=== PATIENT | female | born 1955 | race Caucasian/White ===

== ENCOUNTER 2017-07-16 00:55 | Inpatient (IN) | payer OTHER ==
[~2017-07-16] VITALS: Ht 165.1 cm; Wt 78.1 kg
[2017-07-16] VITALS (21 sets, daily range): BP systolic 128–211; BP diastolic 69–98
[~2017-07-16 00:55] MED LIST: ASPIRIN81 M1 PO; CARVEDILOL6.25 MG PO; COREG6.25 MG PO; HYDROCODONE BIT1 T11 PO; LABETALOL HCL200 MG PO; LISINOPRIL-HYDR1 TA1 PO; NAPROXEN500 MG PO; PERCOCET 325 MG1 TA5 PO; QUINAPRIL40 MG PO; VICODIN ES 7501 TAB PO
[2017-07-16 01:41] LABS: BASO % 0.6 % (0.0-1.0); EOS # 0.2 10*3/uL (0.0-0.4); EOS % 2.8 % (1.0-4.0); HEMATOCRIT 40.5 % (37.0-47.0); HEMOGLOBIN 13.7 g/dl (12.0-16.0); LYMPH # 1.1 10*3/uL (1.3-4.4); LYMPH % 16.1 % (27.0-41.0); MEAN CELL VOLUME 89.2 fl (81.0-99.0); MEAN CORPUSCULAR HGB 30.2 pg (27.0-31.0); MEAN CORPUSCULAR HGB CONC 33.8 g/dl (33.0-37.0); MONO # 0.7 10*3/uL (0.1-1.0); MONO % 9.9 % (3.0-9.0); NEUT % 70.2 % (47.0-73.0); PLATELET COUNT AUTOMATED 259 10*3/uL (130-400); RED BLOOD COUNT 4.54 10*6/uL (4.10-5.10); RED CELL DISTRI WIDTH 12.5 % (0-14.5); WHITE BLOOD COUNT 7.1 10*3/uL (4.8-10.8)
[2017-07-16 01:53] LABS: ACT PARTIAL THROMBO TIME 23.5 SECONDS (20.8-31.5)
[2017-07-16 02:02] LABS: ALBUMIN 3.7 gm/dl (3.1-4.5); ALKALINE PHOSPHATASE 68 U/L (45-117); BUN 27 mg/dl (7-24); CHLORIDE 102 mmol/L (98-107); CREATININE 1.41 mg/dL (0.55-1.02); LIPASE 231 U/L (73-393); POTASSIUM 3.5 mmol/L (3.5-5.1); SGOT/AST 15 IU/L (3-35); SGPT/ALT 24 U/L (12-78); SODIUM 140 mmol/L (136-145); TOTAL PROTEIN 7.4 gm/dL (6.4-8.2)
[2017-07-16 02:08] LABS: TROPONIN I < 0.015 ng/ml (<0.045)
--- NOTE | 2017-07-16 04:00 | NUR ---
THIS RN CALLED FOR NURSE TO NURSE REPORT.NURSE TO RETURN CALL.
--- NOTE | 2017-07-16 04:25 | NUR ---
A 61, admitted to , under the services of MONTRELL Kendall DO with a diagnosis of SYNCOPE, LOW BLOOD PRESSURE. Chief complaint is "HAVING ELEVATED BLOOD PRESSURE READINGS FOR 2X DAYS WITH DIZZINESS AND LOSS OF CONSCIOUSNESS. Patient arrived via ambulance from ER. Monitor applied. Initial assessment completed. Vital signs taken and recorded. MONTRELL KENDALL DO notified of admission to the unit. Orders received. See assessment for past medical history, medications and allergies. Patient and/or family oriented to unit. [facility] visitation policy reviewed. Clothing/patient valuable form completed. DAILY DORANTES
--- NOTE | 2017-07-16 04:25 | NUR ---
Time: 424 A 61 year old F admitted to under services of MONTRELL KENDALL DO, Pt. arrived via bed from ER. Chief complaint: DAILY RODRIGUEZ
[2017-07-16] MEDS ORDERED: ZOLOFT25 MG PO (04:46)
[2017-07-16] MEDS ORDERED: NORVASC5 MG PO (04:47)
[2017-07-16 06:18] LABS: BASO % 0.6 % (0.0-1.0); EOS # 0.1 10*3/uL (0.0-0.4); EOS % 1.6 % (1.0-4.0); HEMATOCRIT 39.3 % (37.0-47.0); HEMOGLOBIN 13.2 g/dl (12.0-16.0); LYMPH % 15.2 % (27.0-41.0); MEAN CELL VOLUME 90.1 fl (81.0-99.0); MEAN CORPUSCULAR HGB 30.3 pg (27.0-31.0); MEAN CORPUSCULAR HGB CONC 33.6 g/dl (33.0-37.0); MEAN PLATELET VOLUME 9.3 fl (9.6-12.3); MONO # 0.7 10*3/uL (0.1-1.0); MONO % 10.4 % (3.0-9.0); NEUT # 4.6 10*3/uL (2.3-7.9); NEUT % 71.9 % (47.0-73.0); PLATELET COUNT AUTOMATED 266 10*3/uL (130-400); RED BLOOD COUNT 4.36 10*6/uL (4.10-5.10); RED CELL DISTRI WIDTH 12.4 % (0-14.5); WHITE BLOOD COUNT 6.3 10*3/uL (4.8-10.8)
[2017-07-16 06:32] LABS: ALBUMIN 3.4 gm/dl (3.1-4.5); BUN 24 mg/dl (7-24); CHLORIDE 105 mmol/L (98-107); CHOLESTEROL 184 mg/dL (<200); CREATININE 1.18 mg/dL (0.55-1.02); PHOSPHOROUS 3.6 mg/dL (2.5-4.9); POTASSIUM 3.8 mmol/L (3.5-5.1); SGOT/AST 17 IU/L (3-35); SGPT/ALT 21 U/L (12-78); SODIUM 140 mmol/L (136-145); TRIGLYCERIDES 103 mg/dl (<150); VLDL CHOLESTEROL 21 mg/dL (6-40)
[2017-07-16 06:33] LABS: ALKALINE PHOSPHATASE 60 U/L (45-117); HDL CHOLESTEROL 61 mg/dl (40-60); LDL CHOLESTEROL 102 mg/dL (9-159); TOTAL PROTEIN 6.7 gm/dL (6.4-8.2)
[2017-07-16 06:36] LABS: TROPONIN I < 0.015 ng/ml (<0.045)
[2017-07-16 06:39] LABS: FREE T4 0.94 ng/dl (0.76-1.46)
[2017-07-16 06:56] LABS: ACT PARTIAL THROMBO TIME 24.6 SECONDS (20.8-31.5)
[2017-07-16 07:01] LABS: VITAMIN D, 25-HYDROXY 29.4 ng/mL (30-100)
--- NOTE | 2017-07-16 08:05 | NUR ---
PT RESTING IN BED. RESP-EASY AND REGULAR. IVF INFUSING WITH NO PROBLEM. C/O HEADACHE, RATES PAIN 6 ON PAIN SCALE. MEDICATED WITH TYLENOL TWO TAB PO PER PRN ORDER, SEE EMAR. CALL LIGHT IN REACH. SEE SHIFT ASSESSMENT.
--- NOTE | 2017-07-16 09:00 | NUR ---
RESTING IN BED WITH EYES CLOSED. MEDICATION SEEMS TO BE EFFECTIVE. CALL LIGHT IN [facility].
--- NOTE | 2017-07-16 11:39 | NUR ---
CALLED DR. HOWARD ANSWERING SERVICE REGARDING CONSULT. THEY WILL BEEP HIM.
--- NOTE | 2017-07-16 12:00 | NUR ---
PT SLEEPING IN BED ON RIGHT SIDE. NO SIGNS OF ACUTE DISTRESS NOTED. RESP-EASY AND REGULAR. IVF INFUSING WITH NO PROBLEM. CALL LIGHT IN [facility].
[2017-07-16 12:32] LABS: BILIRUBIN NEGATIVE (NEGATIVE); BLOOD NEGATIVE (NEGATIVE); CLARITY CLEAR (CLEAR); COLOR YELLOW (YELLOW); GLUCOSE NEGATIVE (NEGATIVE); KETONE NEGATIVE (NEGATIVE); LEUKO ESTERASE NEGATIVE (NEGATIVE); NITRITE NEGATIVE (NEGATIVE); UROBILINOGEN 0.2 E.U./dl (0.2-1.0)
--- NOTE | 2017-07-16 14:00 | NUR ---
PT RESTING IN BED. RESP-EASY AND REGULAR. IVF INFUSING WITH NO PROBLEM. NO C/O AT THIS TIME. CALL LIGHT IN REACH.
--- NOTE | 2017-07-16 16:00 | NUR ---
PT RESTING IN BED. RESP-EASY AND REGULAR. IVF INFUSING WITH NO PROBLEM. NO C/O AT THIS TIME. CALL LIGHT IN REACH. SEE SHIFT ASSESSMENT.
--- NOTE | 2017-07-16 18:00 | NUR ---
RESTING IN BED. RESP-EASY AND REGULAR. IVF INFUSING WITH NO PROBLEM. NO C/O AT THIS TIME. CALL LIGHT IN REACH.
--- NOTE | 2017-07-16 19:42 | NUR ---
CALLED REGARDING PTs HIGH BLOOD PRESSURE. NEW ORDERS RECEIVED. SEE SEP.
--- NOTE | 2017-07-16 19:48 | NUR ---
PT IN BED, LAYING DOWN. ELEVATED BLOOD PRESSURE AT THIS TIME. PT VOICES CONCERNS OF STIFF NECK AND HEADACHE. LUNGS DIMINISHED AND CLEAR. NO EDEMA NOTED. FLUIDS GOING, PT VOICES NO CONCERNS OF IV SITE. WILL CONTINUE TO MONITOR.
--- NOTE | 2017-07-16 21:24 | NUR ---
CALLED FOR UPDATE ON PTs STATUS. NO NEW ORDERS RECEIVED. WILL CONTINUE TO MONITOR PT.
[2017-07-17] VITALS (8 sets, daily range): BP systolic 134–180; BP diastolic 78–96
--- NOTE | 2017-07-17 02:54 | NUR ---
24HR CHART CHECK COMPLETED.
--- NOTE | 2017-07-17 03:09 | NUR ---
PT IN BED, LIGHT OFF, EYES CLOSED. PT RESTING COMFORTABLY. RESPIRATIONS EASY, UNLABORED. VITAL SIGNS STABLE. PT IN NO APPARENT DISTRESS AT THIS TIME.
[2017-07-17 06:14] LABS: BUN 17 mg/dl (7-24); CHLORIDE 107 mmol/L (98-107); CREATININE 1.08 mg/dL (0.55-1.02); SODIUM 141 mmol/L (136-145)
[2017-07-17 06:39] LABS: BASO % 0.7 % (0.0-1.0); EOS # 0.2 10*3/uL (0.0-0.4); HEMOGLOBIN 13.7 g/dl (12.0-16.0); LYMPH # 1.2 10*3/uL (1.3-4.4); LYMPH % 19.3 % (27.0-41.0); MEAN CELL VOLUME 90.5 fl (81.0-99.0); MEAN CORPUSCULAR HGB 30.2 pg (27.0-31.0); MEAN CORPUSCULAR HGB CONC 33.4 g/dl (33.0-37.0); MEAN PLATELET VOLUME 9.5 fl (9.6-12.3); MONO # 0.6 10*3/uL (0.1-1.0); MONO % 10.2 % (3.0-9.0); NEUT % 66.5 % (47.0-73.0); PLATELET COUNT AUTOMATED 271 10*3/uL (130-400); RED BLOOD COUNT 4.53 10*6/uL (4.10-5.10); RED CELL DISTRI WIDTH 12.5 % (0-14.5)
--- NOTE | 2017-07-17 07:02 | NUR ---
PT IN BED, LIGHTS OFF, RESIRATIONS EASY, UNLABORED. CALL LIGHT IN REACH. PT IN NO APPARENT DISTRESS AT THIS TIME.
--- NOTE | 2017-07-17 08:00 | NUR ---
PT RESTING IN BED. RESP-EASY AND REGULAR. NO C/O AT THIS TIME. ORTHOSTATICS DONE AND WAS NEGATIVE PT ASYMPTOMATIC. CALL LIGHT IN REACH. SEE SHIFT ASSESSMENT.
--- NOTE | 2017-07-17 08:30 | NUR ---
Web Content Coordinator in to talk to patient. Patient states lives at home with her and son. There are 2 steps in the home. Physician: Dr. Mcnair Pharmacy: [facility] services: none Patient's level of ADLs: INDEPENDENT Patient has working utilities: yes DME: none Follow-up physician's appointment after d/c: will be made by hospitalist nurse director upon discharge Does patient want to access PORTAL?: no Discharge plan discussed with patient. She lives at home with her and son. She is independent in her ADLs and ambulation. Denies any home needs at this time. When medically stable she will be discharged to home. SHIRIN HINOJOSA
--- NOTE | 2017-07-17 10:00 | NUR ---
TOLERATED ROUTINE MED WITH NO PROBLEM. NO C/O AT THIS TIME. CALL LIGHT IN REACH.
--- NOTE | 2017-07-17 14:10 | NUR ---
CALLED DR. ARIAS MADE AWARE OF BP 180/92. MADE AWARE DR. BARAJAS INCREASED NORVASC SHE TAKES IN EVENING AND ADDED HER HCTZ. HE WILL ADD ONE TIME DOSE NORVASC.
[2017-07-17] MEDS ORDERED: HYDROCHLOROTH12.5 M2 PO (14:18)
--- NOTE | 2017-07-17 14:35 | NUR ---
PT RESTING IN BED. MEDICATED WITH NORVASC ONE TIME ORDER, SEE EMAR. CALL LIGHT IN [facility].
--- NOTE | 2017-07-17 14:50 | NUR ---
DR. BARAJAS ON THE FLOOR GOING TO ADD LISINOPRIL ONE TIME. WAITING FOR MED.
--- NOTE | 2017-07-17 16:08 | NUR ---
PT MEDICATED WITH COZAAR PO PER ORDER, SEE EMAR. CALL LIGH TIN REACH. NO C/O AT THIS TIME. CALL LIGHT IN REACH. SEE SHIFT ASSESSMENT.
--- NOTE | 2017-07-17 18:30 | NUR ---
PT RESTING IN BED WITH VISITOR AT HER SIDE. CALL LIGHT IN REACH.
--- NOTE | 2017-07-17 19:28 | NUR ---
PHYSICAL THERAPY PATIENT SEEN TODAY ON LEVEL 4 FOR SCREEN/EVAL. PATIENT IS INDEPENDENT WITH ALL FUNCTIONAL MOBILITY THROUGHOUT THE ROOM WITH NO AD AND NO PT SERVICES ARE INDICATED AT THIS TIME. SHE STATES SHE WAL[place] AND HAS NO LOB OR ISSUES REQUIRING PT SERVICES AT THIS TIME. THANK YOU FOR REFERRAL MARY PRINGLE
--- NOTE | 2017-07-17 20:06 | NUR ---
PT IN BED, LIGHTS ON, WATCHING TV. CALL LIGHT WITHIN REACH. PT IS PLEASANT AND COOPERATIVE AT THIS TIME. VOICES COMPLAINTS OF A HEADACHE AND REQUESTING TYLENOL. NO OTHER COMPLAINTS AT THIS TIME. VITAL SIGNS STABLE. SEE SHIFT ASSESSMENT.
--- NOTE | 2017-07-17 20:48 | NUR ---
PT REQUESTED MEDICATION FOR HEADACHE. PAIN RATED AT 5 OUT OF 10 BUT STATES "I CAN FEEL THAT IT'S GOING TO GET WORSE." HEADACHE LOCATRED IN THE FOREHEAD AREA AND DULL, ACHING. PRN TYLENOL GIVEN. WILL MONITOR FOR EFFECTIVENSS.
--- NOTE | 2017-07-17 21:36 | NUR ---
PER PT, TYLENOL WAS EFFECTIVE FOR HEADACHE PAIN. PAIN RATED AT 2 OUT OF 10. WILL CONTINUE TO MONITOR. CALL LIGHT WITHIN REACH PT VOICES NO OTHER CONCERNS OR COMPLAINTS AT THIS TIME.
[2017-07-18] VITALS: BP 127/76
[2017-07-18 04:00] VITALS: BP 124/66
--- NOTE | 2017-07-18 04:25 | NUR ---
24HR CHART CHECK COMPLETED.
[2017-07-18 07:50] VITALS: BP 138/90
--- NOTE | 2017-07-18 07:59 | NUR ---
PT WAS AWAKE AND ORIENTED X3. SHE WAS LAYING IN BED WATCHING TV, DENIES ANY PAIN OR SOB. PT IS ORDERING BREAKFAST AND HAS NO COMPLAINTS AT THIS TIME. BP WAS 138/90 M [facility]
--- NOTE | 2017-07-18 08:00 | NUR ---
RESTING IN BED. RESP-EASY AND REGULAR. NO C/O A THTIS TIME. CALL LIGHT IN REACH.
[2017-07-18 08:13] LABS: BASO # 0.1 10*3/uL (0.0-0.1); BASO % 0.7 % (0.0-1.0); EOS # 0.2 10*3/uL (0.0-0.4); EOS % 2.4 % (1.0-4.0); HEMATOCRIT 46.4 % (37.0-47.0); HEMOGLOBIN 15.7 g/dl (12.0-16.0); LYMPH # 1.3 10*3/uL (1.3-4.4); LYMPH % 18.1 % (27.0-41.0); MEAN CELL VOLUME 88.5 fl (81.0-99.0); MEAN CORPUSCULAR HGB CONC 33.8 g/dl (33.0-37.0); MEAN PLATELET VOLUME 9.6 fl (9.6-12.3); MONO # 0.7 10*3/uL (0.1-1.0); MONO % 9.3 % (3.0-9.0); NEUT # 4.8 10*3/uL (2.3-7.9); NEUT % 68.9 % (47.0-73.0); PLATELET COUNT AUTOMATED 319 10*3/uL (130-400); RED BLOOD COUNT 5.24 10*6/uL (4.10-5.10); RED CELL DISTRI WIDTH 12.7 % (0-14.5)
--- NOTE | 2017-07-18 08:30 | NUR ---
School Curriculum Developer in to see patient. No new needs or request at this time. When medically stable she will be discharged to home.
[2017-07-18 08:36] LABS: ALBUMIN 4.1 gm/dl (3.1-4.5); ALKALINE PHOSPHATASE 80 U/L (45-117); BUN 24 mg/dl (7-24); CHLORIDE 104 mmol/L (98-107); CREATININE 1.09 mg/dL (0.55-1.02); POTASSIUM 3.8 mmol/L (3.5-5.1); SGOT/AST 16 IU/L (3-35); SGPT/ALT 24 U/L (12-78); SODIUM 138 mmol/L (136-145); TOTAL PROTEIN 8.3 gm/dL (6.4-8.2)
--- NOTE | 2017-07-18 08:38 | NUR ---
SPOKE WITH DR. ARIAS MADE AWARE PT BP THIS AM WITH ORTHOSTATICS.
[2017-07-18] MEDS ORDERED: COZAAR25 M1 PO (09:36)
--- NOTE | 2017-07-18 10:02 | NUR ---
Discharge instructions reviewed with patient/family. Patient receptive and verbalizes understanding. Follow-up care arranged. Written instructions given to patient/family. HEPLOCK REMOVED 2X2 APPLIED. MONITOR REMOVED. COTY AYOUB
--- NOTE | 2017-07-18 10:05 | NUR ---
IV SITE DISCONTINUED. SITE ASYMP WITH CATH INTACT. PT DISCHARGE INSTRUCTIONS GIVEN. PT VERBALIZED UNDERSTANDING. SHES WAITING FOR HER . YAZ VIVAS [id number]
--- NOTE | 2017-07-18 10:30 | NUR ---
PT ESCORTED OFF THE FLOOR FOR DISCHARGE.
== END 2017-07-18 10:30 | disposition home or self-care (01) | DRG 312 ==
LOC: ED 00:55 → EDHOLD 03:47 → 4E 03:47
PROVIDERS: Emergency Medicine; Emergency Medicine Emergency Medical Services; Family Medicine; Hospitalist; ADMIT Internal Medicine
DX: R55 Syncope and collapse (principal); N17.0 Acute kidney failure with tubular necrosis; E86.0 Dehydration; I16.0 Hypertensive urgency; I10 Essential (primary) hypertension; E55.9 Vitamin D deficiency, unspecified; R73.9 Hyperglycemia, unspecified; Z79.899 Other long term (current) drug therapy; Z80.3 Family history of malignant neoplasm of breast; Z80.0 Family history of malignant neoplasm of digestive organs; Z82.0 Family history of epilepsy and other diseases of the nervous system

== ENCOUNTER → 2018-03-29 | Outpatient (CLI) | payer OTHER ==
[~2018-03-29] MED LIST changes: +COZAAR25 M1 PO; +HYDROCHLOROTH12.5 M2 PO; +NORCO 5-325 TA1 EACH PO; +NORVASC5 MG PO; +ZOLOFT25 MG PO
[2018-03-30 16:08] LABS: A/G RATIO 1.3 (0.7-1.7); ALBUMIN 4.1 g/dL (2.9-4.4); ALPHA-1-GLOBULIN 0.2 g/dL (0.0-0.4); ALPHA-2-GLOBULIN 0.8 g/dL (0.4-1.0); BETA GLOBULIN 1.1 g/dL (0.7-1.3); FREE KAPPA LIGHT CHAINS 27.1 mg/L (3.3-19.4); FREE LAMBDA LIGHT CHAINS 23.3 mg/L (5.7-26.3); GAMMA GLOBULIN 1.2 g/dL (0.4-1.8); GLOBULIN, TOTAL 3.3 g/dL (2.2-3.9); IMMUNOGLOBULIN G, QNT 1107 mg/dL (700-1600); IMMUNOGLOBULIN M, QNT 155 mg/dL (26-217); KAPPA/LAMBDA RATIO 1.16 (0.26-1.65); M-SPIKE Not Observed g/dL (Not Observed); TOTAL PROTEIN, SERUM 7.4 g/dL (6.0-8.5)
== END | disposition home or self-care (01) ==
LOC: LAB 15:44
PROVIDERS: Family Medicine
DX: M89.9 Disorder of bone, unspecified (principal)

== ENCOUNTER 2018-05-23 13:29 | Emergency (ER) | payer OTHER ==
[~2018-05-23] VITALS: Ht 165.1 cm; Wt 73.5 kg
== END 2018-05-23 14:11 | disposition home or self-care (01) ==
LOC: ED 13:29
DX: S61.211A Laceration without foreign body of left index finger without damage to nail, initial encounter (principal); Z23 Encounter for immunization; Z79.899 Other long term (current) drug therapy; W26.0XXA Contact with knife, initial encounter; Y93.89 Activity, other specified; Y92.89 Other specified places as the place of occurrence of the external cause; Y99.8 Other external cause status

== ENCOUNTER → 2019-07-30 | Outpatient (CLI) | payer MEDICARE | END | disposition home or self-care (01) | LOC: RAD 13:34 | DX: M25.541 Pain in joints of right hand (principal) ==

== ENCOUNTER → 2019-08-08 | Outpatient (CLI) | payer MEDICARE | END | disposition home or self-care (01) | LOC: RAD 16:06 | DX: M25.511 Pain in right shoulder (principal) ==

== ENCOUNTER 2019-08-24 18:55 | Inpatient (IN) | payer MEDICARE ==
[~2019-08-24] VITALS: Ht 165.1 cm; Wt 70.6 kg
[2019-08-24 19:18] VITALS: BP 190/98
[2019-08-24 19:27] VITALS: BP 210/104
[2019-08-24 19:56] LABS: BASO % 0.4 % (0.0-1.0); EOS # 0.2 10*3/uL (0.0-0.4); EOS % 2.2 % (1.0-4.0); HEMATOCRIT 43.4 % (37.0-47.0); HEMOGLOBIN 14.5 g/dl (12.0-16.0); LYMPH # 0.9 10*3/uL (1.3-4.4); LYMPH % 12.8 % (27.0-41.0); MEAN CELL VOLUME 90.4 fl (81.0-99.0); MEAN CORPUSCULAR HGB 30.2 pg (27.0-31.0); MEAN CORPUSCULAR HGB CONC 33.4 g/dl (33.0-37.0); MEAN PLATELET VOLUME 9.1 fl (9.6-12.3); MONO # 0.5 10*3/uL (0.1-1.0); MONO % 6.7 % (3.0-9.0); NEUT # 5.5 10*3/uL (2.3-7.9); NEUT % 77.6 % (47.0-73.0); PLATELET COUNT AUTOMATED 273 10*3/uL (130-400); RED CELL DISTRI WIDTH 12.4 % (0-14.5); WHITE BLOOD COUNT 7.1 10*3/uL (4.8-10.8)
[2019-08-24 19:59] LABS: COLOR YELLOW (YELLOW)
[2019-08-24 20:00] LABS: BILIRUBIN NEGATIVE (NEGATIVE); BLOOD NEGATIVE (NEGATIVE); CLARITY CLEAR (CLEAR); GLUCOSE NEGATIVE (NEGATIVE); KETONE NEGATIVE (NEGATIVE); LEUKO ESTERASE NEGATIVE (NEGATIVE); NITRITE NEGATIVE (NEGATIVE); UROBILINOGEN 0.2 E.U./dl (0.2-1.0)
[2019-08-24 20:05] LABS: INTERNATIONAL NORM RATIO 0.9 (2.0-3.5)
[2019-08-24 20:08] LABS: ALBUMIN 3.6 gm/dl (3.1-4.5); ALKALINE PHOSPHATASE 68 U/L (45-117); BUN 17 mg/dl (7-24); CHLORIDE 106 mmol/L (98-107); CREATININE 1.08 mg/dL (0.55-1.02); POTASSIUM 3.6 mmol/L (3.5-5.1); SGOT/AST 13 IU/L (3-35); SGPT/ALT 23 U/L (12-78); SODIUM 141 mmol/L (136-145); TOTAL PROTEIN 7.4 gm/dL (6.4-8.2)
[2019-08-24 20:12] LABS: TROPONIN I < 0.015 ng/ml (<0.045)
[2019-08-24 20:20] LABS: BACTERIA TRACE; EPITHELIAL CELLS 0-2; RBC 0-2 rbc/hpf (0-2); WBC 0-2 wbc/hpf (0-5)
[2019-08-24 20:27] VITALS: BP 174/85
[2019-08-24 20:52] VITALS: BP 161/80
[2019-08-24 21:56] VITALS: BP 173/95
[2019-08-24 22:04] VITALS: BP 190/90
--- NOTE | 2019-08-24 22:04 | NUR ---
A 64 YEAR OLD FEMALE PATIENT, admitted to 4E, under the services of ERICKA Bhakta DO with a diagnosis of HYPERTENSIVE EMERGENCY Chief complaint is HIGH BLOOD PRESSURE READINGS AT HOME, HEADACHE Patient arrived via CART WITH RN from ER. Monitor applied. Initial assessment completed. Vital signs taken and recorded. ERICKA BHAKTA DO notified of admission to the unit. Orders received. See assessment for past medical history, medications and allergies. Patient and/or family oriented to unit. [address] visitation policy reviewed. Clothing/patient valuable form completed. JARVIS LOGAN
[2019-08-25] VITALS: BP 148/90
[2019-08-25] MEDS ORDERED: BUSPAR5 MG PO (00:34)
[2019-08-25] MEDS ORDERED: IBUPROFEN600 MG PO (00:34)
--- NOTE | 2019-08-25 02:15 | NUR ---
PATIENT RESTING WITH EYES CLOSED, APPEARS TO BE RESTING EASIER SINCE EARLIER MEDICATION
[2019-08-25 07:28] LABS: BASO % 0.3 % (0.0-1.0); EOS % 0.4 % (1.0-4.0); HEMATOCRIT 43.7 % (37.0-47.0); HEMOGLOBIN 14.8 g/dl (12.0-16.0); LYMPH # 0.8 10*3/uL (1.3-4.4); MEAN CELL VOLUME 90.3 fl (81.0-99.0); MEAN CORPUSCULAR HGB 30.6 pg (27.0-31.0); MEAN CORPUSCULAR HGB CONC 33.9 g/dl (33.0-37.0); MEAN PLATELET VOLUME 9.4 fl (9.6-12.3); MONO # 0.5 10*3/uL (0.1-1.0); MONO % 5.1 % (3.0-9.0); NEUT # 8.8 10*3/uL (2.3-7.9); NEUT % 85.9 % (47.0-73.0); PLATELET COUNT AUTOMATED 291 10*3/uL (130-400); RED BLOOD COUNT 4.84 10*6/uL (4.10-5.10); RED CELL DISTRI WIDTH 12.5 % (0-14.5); WHITE BLOOD COUNT 10.3 10*3/uL (4.8-10.8)
[2019-08-25 07:52] LABS: ALBUMIN 3.7 gm/dl (3.1-4.5); ALKALINE PHOSPHATASE 70 U/L (45-117); BUN 17 mg/dl (7-24); CHLORIDE 105 mmol/L (98-107); CREATININE 0.97 mg/dL (0.55-1.02); PHOSPHOROUS 3.5 mg/dL (2.5-4.9); POTASSIUM 3.9 mmol/L (3.5-5.1); SGOT/AST 13 IU/L (3-35); SGPT/ALT 23 U/L (12-78); SODIUM 140 mmol/L (136-145); TOTAL PROTEIN 7.5 gm/dL (6.4-8.2)
[2019-08-25 07:58] LABS: VITAMIN D, 25-HYDROXY 24.1 ng/mL (30-100)
[2019-08-25 08:00] VITALS: BP 176/84
--- NOTE | 2019-08-25 08:30 | NUR ---
Die Set Up Worker in to talk to patient. Patient states lives at home with her . There are 2 steps in the home. Physician: Omero Henderson Pharmacy: [facility] Home health services: none Patient's level of ADLs: INDEPENDENT Patient has working utilities: yes DME: none Follow-up physician's appointment after d/c: will be made by the hospitalist nurse director upon discharge Does patient want to access PORTAL?: no Discharge plan discussed with patient. She lives at home with her . She is independent in her ADLs and ambulation. Discussed home health care services and she denies any home needs at this time. When medically stable she will be discharged to home. Her will provide transportation on discharge. SHIRIN HINOJOSA
--- NOTE | 2019-08-25 08:41 | NUR ---
C/O HEADACHE OF 04/09. TYLENOL GIVEN AT THIS TIME. WILL CONT TO MONITOR. CALL LIGHT IN REACH.
--- NOTE | 2019-08-25 09:35 | NUR ---
TYLENOL EFF FOR HEADACHE. WILL CONT TO MONITOR. CALL LIGHT IN REACH.
[2019-08-25 12:00] VITALS: BP 105/82
--- NOTE | 2019-08-25 14:32 | NUR ---
TYLENOL GIVEN FOR C/O HEADACHE OF 03/09. WILL CONT TO MONITOR. CALL LIGHT IN REACH.
--- NOTE | 2019-08-25 15:32 | NUR ---
TYLENOL EFF FOR HEADACHE. WILL CONT TO MONITOR. CALL LIGHT IN REACH.
[2019-08-25 16:00] VITALS: BP 146/79
--- NOTE | 2019-08-25 19:30 | NUR ---
NURSE REPORT OBTAINED FROM JAYY OGMEZ.
[2019-08-25 20:00] VITALS: BP 160/99
--- NOTE | 2019-08-25 21:19 | NUR ---
PATIENT IS RESTING IN BED WITH EASY AND REGULAR RESPERS ON ROOM AIR. ASSESSMENT IS COMPLETE WITH NO C/O OR S/S OF DISTRESS NOTED AT THIS TIME. BED IS LOW, LOCKED, AND CALL LIGHT IS WITHIN REACH. SEE SHIFT ASSESSMENT.
[2019-08-26] VITALS: BP 133/77
--- NOTE | 2019-08-26 | NUR ---
PATIENT SLEEPING. RESPERS EASY AND REGULAR. CALL LIGHT WITHIN REACH.
--- NOTE | 2019-08-26 03:36 | NUR ---
CHART CHECK COMPLETE.
[2019-08-26 06:27] LABS: BASO % 0.6 % (0.0-1.0); EOS # 0.2 10*3/uL (0.0-0.4); EOS % 2.2 % (1.0-4.0); HEMATOCRIT 47.8 % (37.0-47.0); HEMOGLOBIN 15.6 g/dl (12.0-16.0); LYMPH # 1.6 10*3/uL (1.3-4.4); LYMPH % 22.5 % (27.0-41.0); MEAN CELL VOLUME 92.1 fl (81.0-99.0); MEAN CORPUSCULAR HGB 30.1 pg (27.0-31.0); MEAN CORPUSCULAR HGB CONC 32.6 g/dl (33.0-37.0); MEAN PLATELET VOLUME 9.3 fl (9.6-12.3); MONO # 0.7 10*3/uL (0.1-1.0); MONO % 10.2 % (3.0-9.0); NEUT # 4.6 10*3/uL (2.3-7.9); NEUT % 64.2 % (47.0-73.0); PLATELET COUNT AUTOMATED 289 10*3/uL (130-400); RED BLOOD COUNT 5.19 10*6/uL (4.10-5.10); RED CELL DISTRI WIDTH 12.8 % (0-14.5); WHITE BLOOD COUNT 7.2 10*3/uL (4.8-10.8)
[2019-08-26 06:59] LABS: ALBUMIN 3.9 gm/dl (3.1-4.5); CREATININE 1.15 mg/dL (0.55-1.02); POTASSIUM 3.8 mmol/L (3.5-5.1); TOTAL PROTEIN 7.9 gm/dL (6.4-8.2)
[2019-08-26 08:00] VITALS: BP 130/72
--- NOTE | 2019-08-26 08:00 | NUR ---
VS STABLE- A&O X3, RUIZ, COLOR IS GOOD, SKIN IS WARM DRY AND INTACT, CAPILLARY REFILL <3 SECONDS, SKIN TURGOR IS NON-TENTING, POSITIVE PEDAL PULSES, IV SITE IN RIGHT ARM INTACT, HEART SOUNDS NORMAL, RATE OF 80, LUNGS CLEAR THROUGHOUT PO2 97% ON ROOM AIR, ABDOMEN IS SOFT NON-TENDER NON-DISTENDED, BOWEL SOUNDS X4, BLOOD PRESSURE 130/72, PATIENT DENIES CHEST PAIN, DIZZINESS, HEADACHE, AND BLURRED VISION. NO FURTHER COMPLAINTS AT THIS TIME. PATIENT PLEASANT AND COOPERATIVE. WILL CONTINUE TO MONITER. HORACE GAMBOA [facility]
--- NOTE | 2019-08-26 09:00 | NUR ---
case management visits with patient, she states she will return home possibly today and denies any home needs
[2019-08-26] MEDS ORDERED: LOSARTAN POTASS50 M1 PO (10:42)
--- NOTE | 2019-08-26 11:29 | NUR ---
Discharge instructions reviewed with patient/family. Patient receptive and verbalizes understanding. Follow-up care arranged. Written instructions given to patient/family. Heplock removed. All belongings with patient. Condition stable. HORACE GAMBOA [facility]
== END 2019-08-26 11:29 | disposition home or self-care (01) | DRG 305 ==
LOC: ED 18:55 → EDHOLD 21:47 → 5E 21:47 → 4E 21:47 → 5E 08-25 19:34
PROVIDERS: Emergency Medicine; Physician Assistant; Student in an Organized Health Care Education/Training Program; ADMIT Internal Medicine
DX: I16.1 Hypertensive emergency (principal); R73.9 Hyperglycemia, unspecified; E55.9 Vitamin D deficiency, unspecified; F32.9 Major depressive disorder, single episode, unspecified; F41.9 Anxiety disorder, unspecified; I12.9 Hypertensive chronic kidney disease with stage 1 through stage 4 chronic kidney disease, or unspecified chronic kidney disease; D72.810 Lymphocytopenia; N18.9 Chronic kidney disease, unspecified; T46.5X5A Adverse effect of other antihypertensive drugs, initial encounter; Y92.89 Other specified places as the place of occurrence of the external cause; Z79.899 Other long term (current) drug therapy; Z80.3 Family history of malignant neoplasm of breast; Z80.0 Family history of malignant neoplasm of digestive organs

== ENCOUNTER → 2019-12-18 | Outpatient (CLI) | payer MEDICARE ==
[~2019-12-18] MED LIST changes: +BUSPAR5 MG PO; +IBUPROFEN600 MG PO; +LOSARTAN POTASS50 M1 PO
== END | disposition home or self-care (01) ==
LOC: RAD 12:40
DX: M47.816 Spondylosis without myelopathy or radiculopathy, lumbar region (principal); M43.16 Spondylolisthesis, lumbar region

== ENCOUNTER 2020-12-24 11:25 | Emergency (ER) | payer MEDICARE ==
[~2020-12-24] VITALS: Ht 162.5 cm; Wt 72.6 kg
== END 2020-12-24 13:03 | disposition home or self-care (01) ==
LOC: ED 11:25
DX: S06.0X9A Concussion with loss of consciousness of unspecified duration, initial encounter (principal); Z79.899 Other long term (current) drug therapy; Z90.49 Acquired absence of other specified parts of digestive tract; Z98.890 Other specified postprocedural states; X58.XXXA Exposure to other specified factors, initial encounter; Y93.89 Activity, other specified; Y92.89 Other specified places as the place of occurrence of the external cause; Y99.8 Other external cause status

== ENCOUNTER 2022-08-25 18:12 | Emergency (ER) | payer MEDICARE ==
[~2022-08-25] VITALS: Ht 162.5 cm; Wt 71.2 kg
== END 2022-08-25 21:47 | disposition home or self-care (01) ==
LOC: ED 18:12
DX: M25.562 Pain in left knee (principal); Z79.899 Other long term (current) drug therapy; Z90.49 Acquired absence of other specified parts of digestive tract; Z90.89 Acquired absence of other organs; Z98.890 Other specified postprocedural states; W00.0XXA Fall on same level due to ice and snow, initial encounter; Y93.89 Activity, other specified; Y92.89 Other specified places as the place of occurrence of the external cause; Y99.8 Other external cause status

== ENCOUNTER → 2022-11-14 | Outpatient (CLI) | payer MEDICARE | END | disposition home or self-care (01) | LOC: RAD 07:04 | PROVIDERS: ATTEND Internal Medicine | DX: Z13.820 Encounter for screening for osteoporosis (principal); Z78.0 Asymptomatic menopausal state ==

== ENCOUNTER 2023-11-13 15:46 | Emergency (ER) | payer BC ==
[~2023-11-13] VITALS: Ht 162.5 cm; Wt 72.6 kg
[2023-11-13] MEDS ORDERED: CELECOXIB200 M1 PO (15:56)
[2023-11-13] MEDS ORDERED: hydrALAZINE hydrochloride 20 MG/ML VIAL IV ONE (16:05)
[2023-11-13 16:15] LABS: BASO % 0.6 % (0.0-1.0); EOS # 0.1 10*3/uL (0.0-0.4); EOS % 1.5 % (1.0-4.0); HEMATOCRIT 43.5 % (37.0-47.0); LYMPH # 1.1 10*3/uL (1.3-4.4); LYMPH % 14.9 % (27.0-41.0); MEAN CELL VOLUME 91.4 fl (81.0-99.0); MEAN CORPUSCULAR HGB 29.8 pg (27.0-31.0); MEAN CORPUSCULAR HGB CONC 32.6 g/dl (33.0-37.0); MEAN PLATELET VOLUME 9.4 fl (9.6-12.3); MONO # 0.5 10*3/uL (0.1-1.0); MONO % 7.2 % (3.0-9.0); NEUT # 5.5 10*3/uL (2.3-7.9); NEUT % 75.5 % (47.0-73.0); PLATELET COUNT AUTOMATED 285 10*3/uL (130-400); RED BLOOD COUNT 4.76 10*6/uL (4.10-5.10); RED CELL DISTRI WIDTH 13.1 % (0-14.5); WHITE BLOOD COUNT 7.2 10*3/uL (4.8-10.8)
[2023-11-13] MEDS ORDERED: hydrOXYzine pamoate 25 MG CAP PO ONE (16:15)
[2023-11-13 16:33] LABS: BUN 15 mg/dl (9-23); CHLORIDE 104 mmol/L (98-107); POTASSIUM 3.8 mmol/L (3.4-5.1)
[2023-11-13] MEDS ORDERED: Metoprolol Tartrate 5 MG/5 ML VIAL IV ONE (17:25)
[2023-11-13] MEDS ORDERED: Labetalol Hydrochloride 20 MG/4 ML SYR IV ONE (17:35)
== END 2023-11-13 18:29 | disposition home or self-care (01) ==
LOC: ED 15:46
PROVIDERS: Physician Assistant Medical
DX: I16.0 Hypertensive urgency (principal); R51.9 Headache, unspecified; M25.512 Pain in left shoulder; Z88.6 Allergy status to analgesic agent; Z79.899 Other long term (current) drug therapy; Z90.49 Acquired absence of other specified parts of digestive tract; Z98.890 Other specified postprocedural states; Z90.89 Acquired absence of other organs

== ENCOUNTER 2024-01-03 13:39 | Emergency (ER) | payer OTHER ==
[~2024-01-03] VITALS: Ht 162.5 cm; Wt 72.6 kg
[~2024-01-03 13:39] MED LIST changes: +CELECOXIB200 M1 PO
== END 2024-01-03 15:55 | disposition home or self-care (01) ==
LOC: ED 13:39
DX: S86.912A Strain of unspecified muscle(s) and tendon(s) at lower leg level, left leg, initial encounter (principal); I10 Essential (primary) hypertension; Z88.6 Allergy status to analgesic agent; Z79.899 Other long term (current) drug therapy; Z90.49 Acquired absence of other specified parts of digestive tract; Z98.890 Other specified postprocedural states; Z90.89 Acquired absence of other organs; X58.XXXA Exposure to other specified factors, initial encounter; Y93.89 Activity, other specified; Y92.89 Other specified places as the place of occurrence of the external cause; Y99.8 Other external cause status

== ENCOUNTER → 2025-02-18 | Outpatient (CLI) | payer OTHER | END | disposition home or self-care (01) | LOC: RAD 09:45 | PROVIDERS: ATTEND Internal Medicine | DX: M17.12 Unilateral primary osteoarthritis, left knee (principal) ==

== ENCOUNTER → 2025-03-26 | Outpatient (CLI) | payer OTHER | END | disposition home or self-care (01) | LOC: MRI 03-10 13:00 | PROVIDERS: ATTEND Orthopaedic Surgery | DX: S82.092A Other fracture of left patella, initial encounter for closed fracture (principal); S83.242A Other tear of medial meniscus, current injury, left knee, initial encounter; S83.222A Peripheral tear of medial meniscus, current injury, left knee, initial encounter; M17.12 Unilateral primary osteoarthritis, left knee; S83.412A Sprain of medial collateral ligament of left knee, initial encounter; M25.462 Effusion, left knee; X58.XXXA Exposure to other specified factors, initial encounter; Y93.89 Activity, other specified; Y92.89 Other specified places as the place of occurrence of the external cause; Y99.8 Other external cause status ==

== ENCOUNTER → 2025-04-10 | Outpatient (CLI) | payer OTHER | END | disposition home or self-care (01) | LOC: CT 13:33 | PROVIDERS: ATTEND Orthopaedic Surgery | DX: M17.12 Unilateral primary osteoarthritis, left knee (principal); M85.88 Other specified disorders of bone density and structure, other site; M76.9 Unspecified enthesopathy, lower limb, excluding foot; I70.0 Atherosclerosis of aorta ==

== ENCOUNTER → 2025-06-13 | Outpatient (CLI) | payer OTHER ==
[2025-06-13 09:59] LABS: BASO # 0.1 10*3/uL (0.0-0.1); BASO % 0.8 % (0.0-1.0); EOS # 0.3 10*3/uL (0.0-0.4); EOS % 3.9 % (1.0-4.0); MEAN CELL VOLUME 90.8 fl (81.0-99.0); MEAN CORPUSCULAR HGB 29.5 pg (27.0-31.0); MEAN PLATELET VOLUME 9.4 fl (9.6-12.3); MONO # 0.6 10*3/uL (0.1-1.0); MONO % 7.3 % (3.0-9.0); NEUT # 5.9 10*3/uL (2.3-7.9); NEUT % 75.8 % (47.0-73.0); NUCLEATED RED BLOOD CELL 0.0 % (0.0-0.0); NUCLEATED RED BLOOD CELL 0.0 10*3/uL (0.0-0.0); PLATELET COUNT AUTOMATED 306 10*3/uL (130-400); RED CELL DISTRI WIDTH 12.7 % (0-14.5)
[2025-06-13 10:04] LABS: BILIRUBIN 1+ (Negative); BLOOD Negative (Negative); CLARITY Clear (Clear); COLOR Dark Yellow (Yellow); KETONE Trace (Negative); LEUKO ESTERASE 2+ (Negative); NITRITE Negative (Negative); PH 5.5 (4.5-8.0); SPECIFIC GRAVITY >= 1.030 (1.001-1.030); UROBILINOGEN 1.0 E.U./dl (0.0-1.0)
[2025-06-13 10:12] LABS: ACT PARTIAL THROMBO TIME 26.2 SECONDS (20.0-32.1)
[2025-06-13 10:20] LABS: BUN 22.0 mg/dl (9-23); SGPT/ALT 16.0 U/L (5-49)
[2025-06-13 10:36] LABS: BACTERIA 1+; HYALINE CAST 21-30
[2025-06-13 10:37] LABS: MUCOUS 2+
== END | disposition home or self-care (01) ==
LOC: LAB 09:29
PROVIDERS: ATTEND Orthopaedic Surgery
DX: Z01.812 Encounter for preprocedural laboratory examination (principal); M17.12 Unilateral primary osteoarthritis, left knee; I10 Essential (primary) hypertension; E55.9 Vitamin D deficiency, unspecified; Z79.899 Other long term (current) drug therapy

== ENCOUNTER 2025-06-17 03:38 | Inpatient (IN) | payer OTHER ==
[2025-06-17] VITALS (10 sets, daily range): BP systolic 124–185; BP diastolic 76–92
[~2025-06-17] VITALS: Ht 162.6 cm; Wt 75.9 kg
[2025-06-17] MEDS ORDERED: Water, Sterile 10 ML VIAL ONE (06:47)
[2025-06-17] MEDS ORDERED: Lactated Ringer's Solution 1,000 ML IV ONE ×2 (07:06→08:44)
[2025-06-17] MEDS ORDERED: Water, Sterile 10 ML VIAL IV ONE (07:15)
[2025-06-17] MEDS ORDERED: TRANEXAMIC ACID IN NACL,ISO-OS 100 ML IV ONE ×2 (07:20→08:00)
[2025-06-17] MEDS ORDERED: Bupivacaine Hydrochloride/Ep2 30 ML VIAL ONE (07:45)
[2025-06-17] MEDS ORDERED: DOCUSATE SODIUM 100 MG CAP PO SCH (10:00)
[2025-06-17] MEDS ORDERED: ASPIRIN ENTERIC COATED 81 MG TAB PO SCH (10:00)
[2025-06-17] MEDS ORDERED: Cholecalciferol 2,000 UNIT TABLET (50 MCG) PO SCH (10:00)
[2025-06-17] MEDS ORDERED: Acetaminophen/Oxycodone 5 MG/325 MG TABLET PO PRN (10:25)
[2025-06-17] MEDS ORDERED: PROPOFOL 200 MG/20 ML VIAL IV ONE (18:31)
[2025-06-17] MEDS ORDERED: Dexamethasone Sodium Phospha 4 MG/ML VIAL IV ONE (18:31)
[2025-06-17] MEDS ORDERED: Midazolam Hydrochloride 2 MG/2 ML VIAL IV ONE (18:31)
[2025-06-18] VITALS: BP 155/85
[2025-06-18 06:14] LABS: MEAN CELL VOLUME 93.2 fl (81.0-99.0); MEAN CORPUSCULAR HGB 29.8 pg (27.0-31.0); MEAN PLATELET VOLUME 9.7 fl (9.6-12.3); NUCLEATED RED BLOOD CELL 0.0 % (0.0-0.0); NUCLEATED RED BLOOD CELL 0.0 10*3/uL (0.0-0.0); PLATELET COUNT AUTOMATED 377 10*3/uL (130-400); RED CELL DISTRI WIDTH 12.7 % (0-14.5)
[2025-06-18 06:17] LABS: MANUAL DIFF REFLEX YES
[2025-06-18 07:09] LABS: BUN 22.0 mg/dl (9-23)
[2025-06-18 07:51] LABS: PLATELET SUFFICIENCY NORMAL (NORMAL)
[2025-06-18 08:00] VITALS: BP 141/76
[2025-06-18 12:00] VITALS: BP 139/68
[2025-06-18 16:00] VITALS: BP 147/60
[2025-06-18 20:00] VITALS: BP 156/71
[2025-06-18] MEDS ORDERED: FLUTICASONE PROPIONATE Nasal 16 Gm spray NAS SCH (22:00)
[2025-06-18] MEDS ORDERED: TEMAZEPAM 15 MG CAP PO PRN (22:00)
[2025-06-19] VITALS: BP 138/69
[2025-06-19 06:17] LABS: BASO # 0.0 10*3/uL (0.0-0.1); BASO % 0.3 % (0.0-1.0); EOS # 0.1 10*3/uL (0.0-0.4); EOS % 0.7 % (1.0-4.0); MEAN CELL VOLUME 92.8 fl (81.0-99.0); MEAN CORPUSCULAR HGB 30.2 pg (27.0-31.0); MEAN PLATELET VOLUME 9.8 fl (9.6-12.3); MONO # 1.3 10*3/uL (0.1-1.0); MONO % 12.2 % (3.0-9.0); NEUT # 7.5 10*3/uL (2.3-7.9); NEUT % 70.9 % (47.0-73.0); NUCLEATED RED BLOOD CELL 0.0 % (0.0-0.0); NUCLEATED RED BLOOD CELL 0.0 10*3/uL (0.0-0.0); PLATELET COUNT AUTOMATED 302 10*3/uL (130-400); RED CELL DISTRI WIDTH 13.2 % (0-14.5)
[2025-06-19 08:00] VITALS: BP 145/73
[2025-06-19] MEDS ORDERED: Ondansetron Hydrochloride 4 MG/2 ML VIAL IV PRN (08:10)
[2025-06-19] MEDS ORDERED: Albuterol Sulf/Ipratropium 3 ML VIAL NEB SCH (08:35)
[2025-06-19 12:00] VITALS: BP 129/80
[2025-06-19] MEDS ORDERED: FUROSEMIDE 20 MG/2 ML VIAL IV ONE (12:05)
[2025-06-19 16:00] VITALS: BP 129/64
[2025-06-19 20:00] VITALS: BP 122/56
[2025-06-20] VITALS: BP 128/69
[2025-06-20 06:13] LABS: BASO # 0.0 10*3/uL (0.0-0.1); BASO % 0.4 % (0.0-1.0); EOS # 0.2 10*3/uL (0.0-0.4); EOS % 2.3 % (1.0-4.0); MEAN CELL VOLUME 94.2 fl (81.0-99.0); MEAN CORPUSCULAR HGB 29.8 pg (27.0-31.0); MEAN PLATELET VOLUME 9.3 fl (9.6-12.3); MONO # 1.1 10*3/uL (0.1-1.0); MONO % 10.4 % (3.0-9.0); NEUT # 7.8 10*3/uL (2.3-7.9); NEUT % 73.9 % (47.0-73.0); NUCLEATED RED BLOOD CELL 0.0 % (0.0-0.0); NUCLEATED RED BLOOD CELL 0.0 10*3/uL (0.0-0.0); PLATELET COUNT AUTOMATED 280 10*3/uL (130-400); RED CELL DISTRI WIDTH 13.2 % (0-14.5)
[2025-06-20 08:00] VITALS: BP 121/55
[2025-06-20] MEDS ORDERED: ASPIRIN ADULT L81 M2 PO (09:43)
[2025-06-20] MEDS ORDERED: VITAMIN D350 MCG PO (09:43)
[2025-06-20] MEDS ORDERED: DOCUSATE SOD100 MG PO (09:43)
[2025-06-20] MEDS ORDERED: OXYCODONE-ACET1 EAC3 PO (09:43)
== END 2025-06-20 12:00 | disposition home health service (06) | DRG 470 ==
LOC: SDC 03:38 → 5E 07:55 → SDC 08:00 → 5E 06-20 12:00
PROVIDERS: Orthopaedic Surgery; ADMIT Family Medicine; ATTEND Family Medicine
PROC: 0SRD0JA Replacement of Left Knee Joint with Synthetic Substitute, Uncemented, Open Approach (ICD-10-PCS; principal; 2025-06-17)
DX: M17.12 Unilateral primary osteoarthritis, left knee (principal); N18.32 Chronic kidney disease, stage 3b; I12.9 Hypertensive chronic kidney disease with stage 1 through stage 4 chronic kidney disease, or unspecified chronic kidney disease; R73.9 Hyperglycemia, unspecified; F41.9 Anxiety disorder, unspecified; Z90.89 Acquired absence of other organs; Z80.3 Family history of malignant neoplasm of breast; Z80.8 Family history of malignant neoplasm of other organs or systems; Z84.89 Family history of other specified conditions; Z88.5 Allergy status to narcotic agent

== ENCOUNTER → 2025-06-30 | Outpatient (CLI) | payer OTHER ==
[~2025-06-30] MED LIST changes: +ASPIRIN ADULT L81 M2 PO; +DOCUSATE SOD100 MG PO; +OXYCODONE-ACET1 EAC3 PO; +VITAMIN D350 MCG PO
== END | disposition home or self-care (01) ==
LOC: ORTHO 00:40
PROVIDERS: ATTEND Orthopaedic Surgery
DX: M17.12 Unilateral primary osteoarthritis, left knee (principal)